=== PATIENT | female | born 1955 | race Caucasian/White ===

== ENCOUNTER 2018-04-23 09:54 | Emergency (ER) | payer BC ==
[~2018-04-23] VITALS: Ht 157.5 cm; Wt 58.0 kg
[~2018-04-23 09:54] MED LIST: CIPRO500 MG OR; IMODIUM OR; LORTAB 5 OR; NO MEDS; XANAX0.5 MG PO; ZOFRAN ODT4 MG OR; ZYLET1 ML OP
[2018-04-23] MEDS ORDERED: MOTRIN400 MG PO (10:53)
[2018-04-23] MEDS ORDERED: VOLTAREN1%GEL TOP (10:53)
[2018-04-23 12:25] VITALS: BP 129/74
== END 2018-04-23 12:25 | disposition home or self-care (01) | DRG 566 ==
LOC: ED 09:54
DX: M89.9 Disorder of bone, unspecified (principal); S39.012A Strain of muscle, fascia and tendon of lower back, initial encounter; X58.XXXA Exposure to other specified factors, initial encounter

== ENCOUNTER 2018-07-19 13:06 | Emergency (ER) | payer BC ==
[~2018-07-19] VITALS: Ht 157.5 cm; Wt 58.2 kg
[~2018-07-19 13:06] MED LIST changes: +MOTRIN400 MG PO; +VOLTAREN1%GEL TOP
[2018-07-19 14:09] LABS: HEMATOCRIT 38.7 % (37.0-47.0); HEMOGLOBIN 12.6 g/dl (12.0-16.0); IMMATURE GRANULOCYTES 0.3 % (0.0-5.0); MEAN CELL VOLUME 94.9 fL CALC (80.0-100.0); MEAN CORPUSCULAR HGB 30.9 pG CALC (26.0-32.0); MEAN CORPUSCULAR HGB CONC 32.6 g/L CALC (32.0-36.0); NEUT# 6.98 thou/uL (2.00-7.15); RED BLOOD COUNT 4.08 mill/uL (4.20-5.60); RED CELL DISTRI WIDTH 12.1 % (11.5-15.5)
[2018-07-19 14:41] LABS: URINE BILIRUBIN - DIPSTICK NEGATIVE (NEGATIVE); URINE BLOOD DIPSTICK NEGATIVE (NEGATIVE); URINE COLOR YELLOW; URINE GLUCOSE - DIPSTICK NEGATIVE (NEGATIVE); URINE KETONE NEGATIVE (NEGATIVE); URINE LEUK ESTERASE NEGATIVE (NEGATIVE); URINE NITRITE - DIPSTICK NEGATIVE (Negative); URINE PROTEIN - DIPSTICK NEGATIVE (NEG-TRACE); URINE UROBILINOGEN - DIPSTICK 0.2 E.U./dL (0.2)
[2018-07-19 14:41] LABS: INFLUENZA A NONE DETECTED (NONE DETECT); INFLUENZA B NONE DETECTED (NONE DETECT)
[2018-07-19 15:12] LABS: ALBUMIN 4.4 g/dL (3.2-5.0); ALKALINE PHOSPHATASE 66 u/l (38-126); ANION GAP 15 (6-22 (CALC)); BILIRUBIN, TOTAL 0.5 mg/dL (0.0-1.4); BUN 20 mg/dL (8-23); BUN/CREATININE RATIO 25 (12-20 (CALC)); CARBON DIOXIDE 28 mmol/l (22-30); CHLORIDE 103 mmol/l (95-108); CREATININE 0.8 mg/dL (0.5-1.0); GFR > 60 ML/MIN (>=60 (CALC)); GFR FOR AFR.AMER. > 60 ML/MIN (>=60 (CALC)); POTASSIUM 4.6 mmol/l (3.5-5.1); SGOT/AST 26 u/l (9-36); SODIUM 142 mmol/l (137-146); TOTAL PROTEIN 7.3 g/dL (6.3-8.2)
[2018-07-19 15:19] LABS: URINE CLARITY CLEAR
[2018-07-19] MEDS ORDERED: ZITHROMAX250 MG PO (15:57)
[2018-07-19 16:03] VITALS: BP 115/71
== END 2018-07-19 16:03 | disposition home or self-care (01) | DRG 153 ==
LOC: ED 13:06
PROVIDERS: Emergency Medicine
DX: J06.9 Acute upper respiratory infection, unspecified (principal); B34.9 Viral infection, unspecified; R50.9 Fever, unspecified; R05 Cough; R09.81 Nasal congestion

== ENCOUNTER 2018-11-26 12:21 | Emergency (ER) | payer BC ==
[~2018-11-26] VITALS: Ht 157.5 cm; Wt 68.2 kg
[~2018-11-26 12:21] MED LIST changes: +ZITHROMAX250 MG PO
[2018-11-26] MEDS ORDERED: BACTRIM DS1 TAB PO (12:34)
[2018-11-26] MEDS ORDERED: ALL DAY10 MG PO (12:34)
[2018-11-26] MEDS ORDERED: FLONASE AL50 MCG/ACT NAB (12:34)
[2018-11-26 12:42] VITALS: BP 135/74
== END 2018-11-26 12:51 | disposition home or self-care (01) | DRG 153 ==
LOC: ED 12:21
DX: J30.9 Allergic rhinitis, unspecified (principal); H00.012 Hordeolum externum right lower eyelid

== ENCOUNTER 2019-10-26 | Emergency (ER) | payer BC ==
[~2019-10-26] MED LIST changes: +ALL DAY10 MG PO; +BACTRIM DS1 TAB PO; +FLONASE AL50 MCG/ACT NAB
[2019-10-26 03:25] LABS: HEMOGLOBIN 12.9 g/dl (12.0-16.0); IMMATURE GRANULOCYTES 0.3 % (0.0-5.0); MEAN CELL VOLUME 94.3 fL CALC (80.0-100.0); MEAN CORPUSCULAR HGB 30.4 pG CALC (26.0-32.0); MEAN CORPUSCULAR HGB CONC 32.3 g/L CALC (32.0-36.0); NEUT# 12.23 thou/uL (2.00-7.15); RED BLOOD COUNT 4.24 mill/uL (4.20-5.60); RED CELL DISTRI WIDTH 12.2 % (11.5-15.5); URINE BILIRUBIN - DIPSTICK NEGATIVE (NEGATIVE); URINE BLOOD DIPSTICK TRACE-LYSED (NEGATIVE); URINE COLOR YELLOW; URINE GLUCOSE - DIPSTICK NEGATIVE (NEGATIVE); URINE KETONE NEGATIVE (NEGATIVE); URINE LEUK ESTERASE NEGATIVE (NEGATIVE); URINE NITRITE - DIPSTICK NEGATIVE (Negative); URINE PH 5.5 (4.5-8.0); URINE PROTEIN - DIPSTICK NEGATIVE (NEG-TRACE); URINE UROBILINOGEN - DIPSTICK 0.2 E.U./dL (0.2)
[2019-10-26 03:35] LABS: ALBUMIN 4.8 g/dL (3.2-5.0); AMYLASE 102 u/l (30-110); ANION GAP 11 (6-22 (CALC)); BILIRUBIN, TOTAL 0.3 mg/dL (0.0-1.4); BUN 22 mg/dL (8-23); BUN/CREATININE RATIO 28 (12-20 (CALC)); CARBON DIOXIDE 31 mmol/l (22-30); CHLORIDE 104 mmol/l (95-108); CREATININE 0.8 mg/dL (0.5-1.0); GFR > 60 ML/MIN (>=60 (CALC)); GFR FOR AFR.AMER. > 60 ML/MIN (>=60 (CALC)); LIPASE 147 u/l (23-300); SGOT/AST 28 u/l (9-36); SODIUM 142 mmol/l (137-146); TOTAL PROTEIN 8.1 g/dL (6.3-8.2)
[2019-10-26 03:44] LABS: ALKALINE PHOSPHATASE 108 u/l (38-126)
[2019-10-26 03:47] LABS: MYOGLOBIN 38 ng/mL (0 - 62)
[2019-10-26] MEDS ORDERED: PREVACID30 M3 PO (06:36)
[2019-10-26] MEDS ORDERED: ULTRAM50 M1 PO (06:36)
[2019-10-26] MEDS ORDERED: CIPROFLOXACN500 MG PO (06:36)
[2019-10-26] MEDS ORDERED: ONDANSETRON4 MG PO (06:36)
== END 2019-10-26 07:35 | disposition home or self-care (01) | DRG 392 ==
PROVIDERS: Emergency Medicine
DX: K52.9 Noninfective gastroenteritis and colitis, unspecified (principal)
CPT/HCPCS: J1956; Q9967

== ENCOUNTER 2021-09-25 04:52 | Emergency (ER) | payer BC ==
[~2021-09-25] VITALS: Ht 154.9 cm; Wt 56.0 kg
[~2021-09-25 04:52] MED LIST changes: +CIPROFLOXACN500 MG PO; +ONDANSETRON4 MG PO; +PREVACID30 M3 PO; +ULTRAM50 M1 PO
[2021-09-25] MEDS ORDERED: AZITHROMYCIN500 MG PO (06:11)
[2021-09-25 06:20] LABS: HEMATOCRIT 38.9 % (37.0-47.0); HEMOGLOBIN 12.5 g/dl (12.0-16.0); IMMATURE GRANULOCYTES 0.1 % (0.0-5.0); MEAN CORPUSCULAR HGB 30.9 pG CALC (26.0-32.0); MEAN CORPUSCULAR HGB CONC 32.1 g/dL CAL (32.0-36.0); NEUT# 7.13 thou/uL (2.00-7.15); RED BLOOD COUNT 4.05 mill/uL (4.20-5.60); URINE BILIRUBIN - DIPSTICK NEGATIVE (NEGATIVE); URINE BLOOD DIPSTICK NEGATIVE (NEGATIVE); URINE COLOR YELLOW; URINE GLUCOSE - DIPSTICK NEGATIVE (NEGATIVE); URINE KETONE NEGATIVE (NEGATIVE); URINE LEUK ESTERASE NEGATIVE (NEGATIVE); URINE PH 5.5 (4.5-8.0); URINE PROTEIN - DIPSTICK NEGATIVE (NEG-TRACE); URINE UROBILINOGEN - DIPSTICK 0.2 E.U./dL (0.2)
[2021-09-25 06:21] LABS: URINE NITRITE - DIPSTICK NEGATIVE (Negative)
[2021-09-25 06:30] LABS: ALBUMIN 4.4 g/dL (3.2-5.0); ALKALINE PHOSPHATASE 74 u/l (38-126); ANION GAP 12 (6-22 (CALC)); BILIRUBIN, TOTAL 0.4 mg/dL (0.0-1.4); BUN 15 mg/dL (8-23); BUN/CREATININE RATIO 20 (12-20 (CALC)); CARBON DIOXIDE 28 mmol/l (22-30); CHLORIDE 103 mmol/l (95-108); CREATININE 0.8 mg/dL (0.5-1.0); GFR > 60 ML/MIN (>=60 (CALC)); GFR FOR AFR.AMER. > 60 ML/MIN (>=60 (CALC)); POTASSIUM 4.5 mmol/l (3.5-5.1); SGOT/AST 25 u/l (9-36); SODIUM 139 mmol/l (137-146); TOTAL PROTEIN 7.5 g/dL (6.3-8.2)
[2021-09-25 07:25] VITALS: BP 128/61
== END 2021-09-25 07:55 | disposition home or self-care (01) | DRG 948 ==
LOC: ED 04:52
PROVIDERS: Emergency Medicine
DX: R53.1 Weakness (principal); R11.0 Nausea; R19.7 Diarrhea, unspecified; Z20.822 Contact with and (suspected) exposure to COVID-19

== ENCOUNTER 2024-04-26 17:39 | Emergency (ER) | payer BC ==
[2024-04-26] VITALS (11 sets, daily range): BP systolic 123–145; BP diastolic 64–88
[~2024-04-26] VITALS: Ht 154.9 cm; Wt 54.8 kg
[~2024-04-26 17:39] MED LIST changes: +AZITHROMYCIN500 MG PO
[2024-04-26] MEDS ORDERED: KETOROLAC TROMETHAMINE 30 MG/ML SDV IV STA (18:19)
[2024-04-26 18:43] LABS: BASO% 0.1 % (0-3); EOS% 0.3 % (0-8); HEMATOCRIT 37.7 % (37.0-47.0); HEMOGLOBIN 12.1 g/dl (12.0-16.0); IMMATURE GRANULOCYTES 0.1 % (0.0-5.0); MEAN CELL VOLUME 92.6 fL CALC (80.0-100.0); MEAN CORPUSCULAR HGB 29.7 pG CALC (26.0-32.0); MEAN CORPUSCULAR HGB CONC 32.1 g/dL CAL (32.0-36.0); NEUT# 7.28 thou/uL (2.00-7.15); NEUT% 71.5 % (42-76); RED BLOOD COUNT 4.07 mill/uL (4.20-5.60); RED CELL DISTRI WIDTH 12.8 % (11.5-15.5)
[2024-04-26 18:44] LABS: URINE BILIRUBIN - DIPSTICK Negative (NEGATIVE); URINE BLOOD DIPSTICK Large (NEGATIVE); URINE GLUCOSE - DIPSTICK Negative (NEGATIVE); URINE KETONE Negative (NEGATIVE); URINE PROTEIN - DIPSTICK 100 mg/dL (NEG-TRACE); URINE SPECIFIC GRAVITY 1.015; URINE UROBILINOGEN - DIPSTICK 0.2 E.U./dL (0.2)
[2024-04-26 18:45] LABS: URINE COLOR Yellow; URINE LEUK ESTERASE Large (NEGATIVE); URINE NITRITE - DIPSTICK Positive (Negative)
[2024-04-26 18:52] LABS: URINE BACTERIA MANY hpf; URINE SQUAMOUS EPITHELIAL CELL FEW EPI/hpf (0-FEW); URINE WBC 50-100 WBC/hpf (0-5)
[2024-04-26 19:00] LABS: ALBUMIN 4.8 g/dL (3.2-5.0); ALKALINE PHOSPHATASE 93 u/l (38-126); ANION GAP 13 (6-22 (CALC)); BUN 24 mg/dL (8-23); BUN/CREATININE RATIO 26 (12-20 (CALC)); CARBON DIOXIDE 24 mmol/l (22-30); CHLORIDE 105 mmol/l (95-108); CREATININE 0.9 mg/dL (0.5-1.0); ESTIMATED GFR 70 ML/MIN (>=90 (CALC)); POTASSIUM 3.7 mmol/l (3.5-5.1); SGOT/AST 31 u/l (9-36); SODIUM 137 mmol/l (137-146); TOTAL PROTEIN 7.9 g/dL (6.3-8.2)
[2024-04-26 19:10] LABS: BILIRUBIN, TOTAL 0.7 mg/dL (0.02-1.3)
[2024-04-26] MEDS ORDERED: SODIUM CHLORIDE 0.9% 1,000 ML IV ONE (19:10)
== END 2024-04-26 22:05 | disposition home or self-care (01) | DRG 690 ==
LOC: ED 17:39
PROVIDERS: Nurse Practitioner
DX: N39.0 Urinary tract infection, site not specified (principal); B96.20 Unspecified Escherichia coli [E. coli] as the cause of diseases classified elsewhere
CPT/HCPCS: Q9967